=== PATIENT | male | born 1990 | race Caucasian/White ===

== ENCOUNTER 2022-11-18 08:39 | Outpatient (REF) | payer OTHER, SELFPAY ==
[2022-11-18 08:49] LABS: MANUAL DIFF FLAG NO
[2022-11-18 09:31] LABS: Basophils Percent Auto 0.6 % (0-2); Eosinophils Absolute Auto 0.2 X10*3/uL (0.0-0.4); Eosinophils Percent Auto 2.7 % (0-4); Hematocrit 43.1 % (42.0-52.0); Hemoglobin 15.2 g/dl (14.0-18.0); Imm Gran Abs Auto 0.01 X10*3/uL (0.00-0.03); Imm Gran Pct Auto 0.2 % (0.0-0.4); Lymphocytes Percent Auto 31.9 % (20-40); Mean Corpuscular HGB Conc 35.3 g/dl (31.0-36.0); Mean Corpuscular Hemoglobin 29.6 pg (27.0-33.0); Mean Corpuscular Volume 83.9 fL (80.0-98.0); Mean Platelet Volume 10.5 fL (9.4-12.4); Monocytes Absolute Auto 0.4 X10*3/uL (0.1-1.2); Monocytes Percent Auto 6.8 % (2-11); Neutrophils Absolute Auto 3.6 x10*3/uL (2.0-8.3); Neutrophils Percent Auto 57.8 % (45-73); Platelet Count 244 X10*3/uL (160-400); Red Blood Count 5.14 X10*6/uL (4.60-5.80); Red Cell Distribution Width 13.2 % (11.0-16.0); White Blood Count 6.2 X10*3/uL (4.8-10.8)
== END 2022-11-18 08:40 | disposition home or self-care (01) ==
LOC: HO.LAB 08:39
PROVIDERS: Visit Provider Psychiatry & Neurology Psychiatry
DX: F33.2 Major depressive disorder, recurrent severe without psychotic features (principal)
CPT/HCPCS: 36415; 80053; 82607; 82746; 84439; 84443; 85025

== ENCOUNTER 2022-11-19 08:45 | Outpatient (RCR) | payer OTHER, SELFPAY ==
[2022-11-17 13:52] VITALS: BP 108/60; PULSE 64; TEMP 36.6
[2022-11-17 13:54] VITALS: BMI 32.3
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
--- NOTE | 2022-11-19 07:51 | HO.PHP ---
Case reviewed and opened in treatment team
--- NOTE | 2022-11-19 14:11 | HO.PHP ---
On 11/19/22 at 11;30 am, music writer checked in with pt concerning conflict of interest with peer. Pt expressed feeling embarrassed for what he shared in group and worried for his 's role, does not want the conflict of interest to affect her. Pt was tearful, stated this was the first time he has sought out services for his mental health, desires to be at [facility]. Pt informed of his return date, discussed coping skills and resources Pt can utilize while awaiting restart date. Pt reassured of his privacy, helped to recognize that outside connections with peers occasionally occur and his contribution to group was appropriate and not to blame. Pt provided numbers to crisis and respite should he feel an increase in mental health symptoms. Pt reported he felt safe, identified as a support and agreed to return date on November 29, 2022.
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
== END 2022-11-19 23:59 | disposition home or self-care (01) ==
LOC: HO.PHPA 08:45
PROVIDERS: Visit Provider Psychiatry & Neurology Psychiatry
DX: F33.2 Major depressive disorder, recurrent severe without psychotic features (principal); F43.10 Post-traumatic stress disorder, unspecified; Z79.899 Other long term (current) drug therapy
CPT/HCPCS: 90791; 90853

== ENCOUNTER 2022-11-26 12:15 | Outpatient (RCR) | payer OTHER, SELFPAY | END 2022-11-26 23:59 | disposition admitted as inpatient to this hospital (09) | LOC: HO.PHPA 12:15 | PROVIDERS: Visit Provider Psychiatry & Neurology Psychiatry | DX: F32.A Depression, unspecified (principal) ==